=== PATIENT | female | born 1960 | race Caucasian/White ===

== ENCOUNTER 2020-10-22 12:56 | Inpatient (IN) | payer MEDICARE ==
[~2020-10-22] VITALS: Ht 157.5 cm; Wt 94.6 kg
[2020-10-22] MEDS ORDERED: GABA100 PO (14:41)
[2020-10-22] MEDS ORDERED: PAXIL PO (14:41)
[2020-10-22] MEDS ORDERED: ELIQUIS5 M3 PO (14:41)
[2020-10-22 14:43] LABS: BASOPHILS ABSOLUTE AUTO 0.04 K/mm3 (0.00-0.23); BASOPHILS PERCENT AUTO 0 % (0-2); EOSINOPHILS ABSOLUTE AUTO 0.19 K/mm3 (0.00-0.68); EOSINOPHILS PERCENT AUTO 2 % (0-6); Hematocrit 24.9 % (33.0-51.0); Hemoglobin 7.8 g/dL (11.5-16.0); IMMATURE GRAN ABSOLUTE AUTO 0.08 K/mm3 (0.00-0.10); IMMATURE GRAN PERCENT AUTO 1 % (0-1); LYMPHOCYTES ABSOLUTE AUTO 1.87 K/mm3 (0.84-5.20); LYMPHOCYTES PERCENT AUTO 18 % (21-46); MONOCYTES ABSOLUTE AUTO 0.65 K/mm3 (0.16-1.47); MONOCYTES PERCENT AUTO 6 % (4-13); Mean Corpuscular HGB 32.1 pg (26.0-34.0); Mean Corpuscular HGB Conc 31.3 g/dL (31.5-36.5); Mean Corpuscular Volume 103 fL (80-100); Mean Platelet Volume 10.2 fL (9.1-12.4); NEUTROPHILS ABSOLUTE AUTO 7.54 K/mm3 (1.96-9.15); NEUTROPHILS PERCENT AUTO 73 % (41-73); Platelet Count 288 K/mm3 (150-400); RDW Coefficient Variation 12.4 % (11.7-14.2); RDW Standard Deviation 47.1 fL (35.1-46.3); Red Blood Cell Count 2.43 M/mm3 (3.80-5.20); White Blood Cell Count 10.37 K/mm3 (4.00-11.30)
[2020-10-22] MEDS ORDERED: [UNRECOGNIZED DRUG - OTHER] PO (14:43)
[2020-10-22] MEDS ORDERED: DOXY100 PO (14:43)
[2020-10-22 15:03] LABS: Albumin, Blood 2.2 g/dL (3.4-5.0); Albumin/Globulin Ratio 0.5 (0.8-1.8); Bilirubin, Total 0.5 mg/dL (0.1-1.0); Bun/Creatinine Ratio 11.1 (12.0-20.0); Calcium, Blood 8.7 mg/dL (8.5-10.1); Creatinine, Blood 6.11 mg/dL (0.40-1.00); Globulin, Blood 4.5 g/dL (2.2-4.0); Potassium, Blood 4.7 mmol/L (3.5-5.5); Total Protein, Blood 6.7 g/dL (6.4-8.2)
[2020-10-22 16:25] LABS: International Normalized Ratio 1.1; Prothrombin Time Results 11.8 Sec (9.7-11.5)
--- NOTE | 2020-10-22 18:37 | NUR ---
PT ARRIVED TO UNIT FROM ED @ 1740 VIA GURNEY. PT TRANSFERRED BY SLIDING, WAS ABLE TO REPOSITION HERSELF IN BED AND PULL HERSELF UP. PT STATES SHE IS CURRENTLY IN NO PAIN, DENIES ANY SOB OR DISTRESS. DRESSING ON R BKA IS INTACT AND WAS CHANGED BEFORE COMING UP TO UNIT FROM ED. ARRIVES TO UNIT c HEPARIN RUNNING WELL ZYVOX. ADMISSION PROCESS STARTED BUT NOT YET COMPLETED, HISTORY AND ADMISSION ASSESSMENT NEEDS TO BE DONE. WILL REPORT THIS TO UNCOMING RN. [facility] WAS CALLED REGARDING CONSULT. 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 PT ORIENTED TO CALL SYSTEM. CURRENTLY RESTING IN BED EATING DINNER WITH CALL LIGHT WITHIN REACH.
--- NOTE | 2020-10-23 05:32 | NUR ---
SHIFT SUMMARY AOX4. VSS. REPORTS 12/13 THROBBING PAIN @R BKA STUMP WOUND, MEDICATED 1X c TYLENOL & PT ABLE TO REST COMFORTABLY T/O NIGHT. STATES UNSURE HOW WOUND OCCURRED & NOTICED IT LAST Thursday10/18/20. R BKA STUMP IS RED, SWOLLEN, WARM, PAINFUL TO TOUCH, MACERATED & HAS MODERATE AMOUNT SANGUINOUS DRAINAGE. CLEANSED, TOOK PICS, & APPLIED NEW DRESSING. DR ROSA CONSULTED PER HOSPITALIST YESTERDAY. HS CBG @194, INSULIN COVERAGE PROVIDED PER ORDERS. HEP DRIP RUNNING 17U/KG/HR. PT REPORTS NO DIALYSIS SINCE THURSDAY LAST WK & NORMALLY HAS IT , , THU-DR BUI WAS CONSULTED YESTERDAY. CONTINENT OF URINE, 1 ASSIST TO BSC. CALL LIGHT IN REACH & PT ABLE TO MAKE NEEDS KNOWN.
[2020-10-23 08:58] LABS: BASOPHILS ABSOLUTE AUTO 0.04 K/mm3 (0.00-0.23); BASOPHILS PERCENT AUTO 1 % (0-2); EOSINOPHILS ABSOLUTE AUTO 0.22 K/mm3 (0.00-0.68); EOSINOPHILS PERCENT AUTO 3 % (0-6); Hematocrit 24.2 % (33.0-51.0); Hemoglobin 7.6 g/dL (11.5-16.0); IMMATURE GRAN ABSOLUTE AUTO 0.04 K/mm3 (0.00-0.10); IMMATURE GRAN PERCENT AUTO 1 % (0-1); LYMPHOCYTES ABSOLUTE AUTO 2.59 K/mm3 (0.84-5.20); LYMPHOCYTES PERCENT AUTO 30 % (21-46); MONOCYTES ABSOLUTE AUTO 0.46 K/mm3 (0.16-1.47); MONOCYTES PERCENT AUTO 5 % (4-13); Mean Corpuscular HGB 32.1 pg (26.0-34.0); Mean Corpuscular HGB Conc 31.4 g/dL (31.5-36.5); Mean Corpuscular Volume 102 fL (80-100); Mean Platelet Volume 10.3 fL (9.1-12.4); NEUTROPHILS PERCENT AUTO 61 % (41-73); Platelet Count 302 K/mm3 (150-400); RDW Coefficient Variation 12.2 % (11.7-14.2); RDW Standard Deviation 46.2 fL (35.1-46.3); Red Blood Cell Count 2.37 M/mm3 (3.80-5.20); White Blood Cell Count 8.65 K/mm3 (4.00-11.30)
--- NOTE | 2020-10-23 09:17 | NUR ---
PT DOWN TO DIALYSIS
[2020-10-23 09:52] LABS: Albumin, Blood 2.1 g/dL (3.4-5.0); Albumin/Globulin Ratio 0.4 (0.8-1.8); Bilirubin, Total 0.3 mg/dL (0.1-1.0); Bun/Creatinine Ratio 11.6 (12.0-20.0); Calcium, Blood 8.6 mg/dL (8.5-10.1); Creatinine, Blood 6.57 mg/dL (0.40-1.00); Globulin, Blood 4.8 g/dL (2.2-4.0); Potassium, Blood 4.8 mmol/L (3.5-5.5); Total Protein, Blood 6.9 g/dL (6.4-8.2)
[2020-10-23 13:58] LABS: Influenza A, PCR NEGATIVE (NEGATIVE); Influenza B, PCR NEGATIVE (NEGATIVE); Resp Syncytial Virus, PCR NEGATIVE (NEGATIVE); SARS-Cov-2 (COVID-19) PCR, MMC NEGATIVE (NEGATIVE)
--- NOTE | 2020-10-23 15:01 | NUR ---
PT BACK FROM DIALYSIS AROUND 1230, PT MADE NPO BY DR ROSA, PT TO GO TO SURGERY AROUND 1600, DR ROSA CAME TO SPEAK WITH THE PT ABOUT SURGERY
--- NOTE | 2020-10-23 15:04 | NUR ---
HEPARIN DRIP STOPPED NOW PER DR DOMINIQUE FOR SURGERY
--- NOTE | 2020-10-23 16:44 | NUR ---
PT LEFT FOR SURGERY
--- NOTE | 2020-10-23 17:07 | NUR ---
SUMMARY PT IN SURGERY, PT HAS BEEN PLEASANT AND COOPERATIVE WITH CARE T/O THE DAY, UP TO THE COMMODE WITH 1P ASSIST, ABLE TO FEED HERSELF AND TAKE PILLS WHOLE, DRESSING TO THE R STUMP CHANGED FIRST THING THIS MORNING, PT ELENA WELL, VSS, WILL CONT TO MONITOR
[2020-10-23 17:10] LABS: International Normalized Ratio 1.06; Prothrombin Time Results 11.4 Sec (9.7-11.5)
--- NOTE | 2020-10-23 17:39 | NUR ---
10/23/20 1739 Bailee Salcedo PT ON SCHEDULED ANTIBIOTIC
--- NOTE | 2020-10-23 19:36 | NUR ---
ARRIVED TO FLOOR PT BACK FROM PACU @192. PT SLID TRANSFERRED SELF TO BED. HAS WOUND VAC IN PLACE. INCONT OF STOOL, CLEANSED & NEW BRIEF PLACED. POST OP VITALS PERFORMED. REPORTS 6.5/10 PAIN ON BOTTOM ON R STUMP, WILL MEDICATE PER ORDERS & MONITOR PT.
--- NOTE | 2020-10-24 04:33 | NUR ---
SHIFT SUMMARY AOX4. I&D & WOUND VAC PLACED ON R BKA. POD 1. SPO2 @88% ON RA WHEN PT RETURNED FROM SURGERY. PLACED 1L O2 & SPO2 90-91%, DOES DESAT c PAIN MEDICATION. REST OF VITALS STABLE. REPORTED 6.5/10 THROBBING PAIN ON BOTTOM R STUMP, MEDICATED 1X c 1MG MORPHINE, STATED RELIEF. REPORTS [place], GAVE TYLENOL & STATED RELIEF. ELEVATED R STUMP ON PILLOW. WOUND VAC PATENT, NO DRAINAGE NOTICED IN CANISTER @THIS TIME. HELD HS INSULIN COVERAGE SINCE PT HAD BEEN NPO FOR SURGERY & CBG @97. 1 ASSIST PIVOT TRANSFER TO BSC. CALL LIGHT IN REACH & PT ABLE TO MAKE NEEDS KNOWN.
[2020-10-24 05:00] LABS: Hematocrit 21.9 % (33.0-51.0); Hemoglobin 6.9 g/dL (11.5-16.0); Mean Corpuscular HGB 31.9 pg (26.0-34.0); Mean Corpuscular HGB Conc 31.5 g/dL (31.5-36.5); Mean Corpuscular Volume 101 fL (80-100); Mean Platelet Volume 10.4 fL (9.1-12.4); Platelet Count 294 K/mm3 (150-400); RDW Coefficient Variation 12.2 % (11.7-14.2); RDW Standard Deviation 45.1 fL (35.1-46.3); Red Blood Cell Count 2.16 M/mm3 (3.80-5.20)
[2020-10-24 05:19] LABS: Albumin, Blood 2.2 g/dL (3.4-5.0); Anion Gap 8 mmol/L (6-16); Blood Urea Nitrogen 41 mg/dL (8-24); Bun/Creatinine Ratio 9.8 (12.0-20.0); CO2, Blood 24 mmol/L (21-32); Calcium, Blood 8.5 mg/dL (8.5-10.1); Chloride, Blood 102 mmol/L (98-108); Glomerular Filtration Rate 12 (60-); Glucose, Blood 289 mg/dL (70-99); Magnesium, Blood 2.1 mg/dL (1.6-2.4); Potassium, Blood 5.1 mmol/L (3.5-5.5); Sodium, Blood 134 mmol/L (136-145)
[2020-10-24 06:09] LABS: BASOPHILS PERCENT MAN 0 % (0-2); EOSINOPHILS PERCENT MAN 0 % (0-6); LYMPHOCYTES ABSOLUTE MAN 0.21 K/mm3 (0.84-5.20); LYMPHOCYTES PERCENT MAN 3 % (21-46); MONOCYTES PERCENT MAN 0 % (4-13); MYELOCYTE ABSOLUTE MAN 0.14 K/mm3 (0.00-0.00); MYELOCYTE PERCENT MAN 2 % (0-0); NEUTROPHILS ABSOLUTE MAN 6.74 K/mm3 (1.96-9.15); SEG NEUTROPHILS PERCENT MAN 95 % (41-73); TOTAL CELLS COUNTED 100
--- NOTE | 2020-10-24 13:23 | NUR ---
MORNING MEDS ADMINISTERED WHEN PT RETURNED FROM DIALYSIS. CALL TO PHARMACY TO RETIME ANTIBIOTICS, THEY REPORT THEY WILL NOT RETIME, BUT INSTRUCTED TO ADMINISTER
--- NOTE | 2020-10-24 18:27 | NUR ---
PT AA&OX4. TWO PATENT IV BL ANTICUBICALS SALINE LOCKED. MEDICATED FOR PAIN X2 WITH GOOD RESULTS. PT STATES PAIN TOLERABLE. APPETITE GOOD NO BM TODAY. 1 ASSIST TO BSC. WOUND VAC TO R BKA. MINIMAL SEROSANG DRAINAGE. SURGEON REPORTS NO BONE REMOVED, NO OSTEOMYELITIS. PLAN TO WAIT FOR WOUND CULTURE RESULTS THEN POSSIBLE DISCHARGE HOME TOMORROW. PT HAS NO QUESTIONS OR CONCERNS AT THIS TIME.
--- NOTE | 2020-10-24 18:38 | NUR ---
PT OFF FLOOR 0900 FOR DYALYSIS, UNABLE TO PASS AM MEDS UNTIL RETURN. PT H&H LOW. 2 UNITS PRBC ADMINISTERED DURING DYALYSIS. CINDY DORSEY TO BE RESTARTED THIS EVENING
--- NOTE | 2020-10-25 04:19 | NUR ---
BRAZING MACHINE TENDER SUMMARY PT A/O X4. DENIES PAIN, NAUSEA, DIZZINESS. PT HAS RIGHT BKA WHICH HAS BEEN ABOUT 2 YEARS STATED BY PT. WOUND VAC IN PLACE ON RIGHT LEG. ROOM AIR MAINTAINING O2 SATS AT 92% AND ABOVE. CALLS APPROPIRATELY. NO ACUTE CHANGES. VSS. CALL LIGHT WITHIN REACH.
[2020-10-25 05:51] LABS: Hematocrit 27.3 % (33.0-51.0)
[2020-10-25 06:16] LABS: Albumin, Blood 2.3 g/dL (3.4-5.0); Anion Gap 8 mmol/L (6-16); Blood Urea Nitrogen 36 mg/dL (8-24); Bun/Creatinine Ratio 9.7 (12.0-20.0); CO2, Blood 30 mmol/L (21-32); Chloride, Blood 96 mmol/L (98-108); Creatinine, Blood 3.73 mg/dL (0.40-1.00); Glomerular Filtration Rate 13 (60-); Glucose, Blood 192 mg/dL (70-99); Phosphorus, Blood 5.7 mg/dL (2.5-4.9); Potassium, Blood 3.4 mmol/L (3.5-5.5); Sodium, Blood 134 mmol/L (136-145)
--- NOTE | 2020-10-25 18:32 | NUR ---
SHIFT SUMMARY PT IS A&O AND ABLE TO MAKE NEEDS KNOWN. PT HAD DIALYSIS THIS MORNING. DR LAMAS VISITED PT THIS AFTERNOON PER CONSULATION REQUEST. WOUND VAC DRESSING CHANGED, WOUND MEASURMENTS ARE 4CM WIDE, 8 CM LENGTH, 1.75CM DEPTH. PT DID EXPERIENCE PAIN WHEN REMOVING DRESSING AND OLD FOAM. DRESSING CHANGES ARE TO BE DONE ON MON, WED, FRI. NO ACUTE CHANGES TO REPORT. PT RESTING IN ROOM, CALL LIGHT W/IN REACH. WILL CONTINUE TO MONITOR UNTILL SHIFT CHANGE.
--- NOTE | 2020-10-26 03:21 | NUR ---
SHIFT SUMMARY PATIENT HAD NO ACUTE CHANGES OBSERVED. AXOX 4 AND STAND/PIVOT TO BSC. RIGHT BKA AND WOUND VAC IN PLACE. PERMA CATH RIGHT CHEST WALL. CBG 220. PIVS REMAIN INTACT. IV ABX INFUSED. ON ROOM AIR. DENIES PAIN, SOB, AND N/V. VSS/AFEBRILE. COOPERATIVE WITH CARE. CONTACT PRECAUTIONS. CALL LIGHT IN REACH. BED IN LOWEST POSITION. WILL CONTINUE TO MONITOR UNTIL DAY SHIFT NURSE ASSUMES CARE.
[2020-10-26 06:36] LABS: BASOPHILS ABSOLUTE AUTO 0.03 K/mm3 (0.00-0.23); BASOPHILS PERCENT AUTO 0 % (0-2); EOSINOPHILS ABSOLUTE AUTO 0.13 K/mm3 (0.00-0.68); EOSINOPHILS PERCENT AUTO 2 % (0-6); Hematocrit 29.7 % (33.0-51.0); Hemoglobin 9.5 g/dL (11.5-16.0); IMMATURE GRAN ABSOLUTE AUTO 0.05 K/mm3 (0.00-0.10); IMMATURE GRAN PERCENT AUTO 1 % (0-1); LYMPHOCYTES ABSOLUTE AUTO 2.52 K/mm3 (0.84-5.20); LYMPHOCYTES PERCENT AUTO 31 % (21-46); MONOCYTES ABSOLUTE AUTO 0.48 K/mm3 (0.16-1.47); MONOCYTES PERCENT AUTO 6 % (4-13); Mean Corpuscular HGB 31.7 pg (26.0-34.0); Mean Corpuscular Volume 99 fL (80-100); Mean Platelet Volume 10.2 fL (9.1-12.4); NEUTROPHILS PERCENT AUTO 60 % (41-73); Platelet Count 276 K/mm3 (150-400); RDW Coefficient Variation 13.7 % (11.7-14.2); RDW Standard Deviation 49.6 fL (35.1-46.3); White Blood Cell Count 8.11 K/mm3 (4.00-11.30)
[2020-10-26 06:53] LABS: Albumin, Blood 2.3 g/dL (3.4-5.0); Anion Gap 9 mmol/L (6-16); Blood Urea Nitrogen 36 mg/dL (8-24); Bun/Creatinine Ratio 9.4 (12.0-20.0); CO2, Blood 28 mmol/L (21-32); Calcium, Blood 8.3 mg/dL (8.5-10.1); Chloride, Blood 97 mmol/L (98-108); Creatinine, Blood 3.81 mg/dL (0.40-1.00); Glomerular Filtration Rate 13 (60-); Glucose, Blood 162 mg/dL (70-99); Magnesium, Blood 1.9 mg/dL (1.6-2.4); Potassium, Blood 3.7 mmol/L (3.5-5.5); Sodium, Blood 134 mmol/L (136-145)
--- NOTE | 2020-10-26 17:57 | NUR ---
SHIFT SUMMARY PT A&O AND ABLE TO MAKE NEEDS KNOWN. HAD DIALYSIS THIS MORNING. PTHYSICAL THERPAPY CONSULT WAS DONE IN AFTERNOON AND IT WAS RECOMENDED FOR PT TO DISCHARGE HOME WITH HOME HEALTH. [facility] [employer] IS WOKRING ON DC PLAN FOR PT, IT IS NOT EXPECTED THAT PT WILL DISHCHARGE THIS WEEKEND DUE TO MULTIPLE FACTORS SHE HAS TO SORT OUT. PT HAS EXPERIENCED SOME LOSE AND SOFT BM THIS SHIFT. SPOKE WITH DR DOMINIQUE AND PRN IMODIUM AND PROBIOTIC WAS ORDERED. PT HAS NOT NEEDED TO USE IMODIUM. PT DENIES P/N/V DURING SHIFT. PT CURENTLY IN ROOM FINISHING DINNER. CALL LIGHT W/IN REACH. WILL CONTINUE TO MONITOR UNTIL NIGHT NURSE ARRIVES.
--- NOTE | 2020-10-27 05:26 | NUR ---
SHIFT SUMMARY- PT. S/P I&D OF THE R BKA STUMP, WOUND VAC IN PLACE. PT. A&OX4, PLEASANT AND COOPERATIVE WITH CARE. ABLE TO TRANSFER ONTO BSC W/MINIMAL ASSISTANCE. C/O HEADACHE LAST NIGHT. MEDICATED PER EMAR WITH GOOD EFFECT. PT. REPORTS HAVING LOOSE STOOLS DURING THE DAY, HAD BM X1 LAST NIGHT. PER PT. REQUEST MEDICATED WITH PRN IMMODIUM. PT. SLEPT T/O THE NIGHT, NO APPARENT DISTRESS NOTED. DENIED ANY OTHER NEEDS DURING THE NIGHT. APPEARED COMFORTABLY T/O THE SHIFT, VSS. CALL LIGHT WITHIN REACH AND SIDE RAILS UPX2. WILL CONT TO MONITOR.
[2020-10-27 05:54] LABS: Hematocrit 30.4 % (33.0-51.0)
[2020-10-27 06:15] LABS: Albumin, Blood 2.4 g/dL (3.4-5.0); Anion Gap 6 mmol/L (6-16); Blood Urea Nitrogen 31 mg/dL (8-24); Bun/Creatinine Ratio 8.4 (12.0-20.0); CO2, Blood 30 mmol/L (21-32); Calcium, Blood 8.6 mg/dL (8.5-10.1); Chloride, Blood 94 mmol/L (98-108); Creatinine, Blood 3.69 mg/dL (0.40-1.00); Glomerular Filtration Rate 13 (60-); Glucose, Blood 120 mg/dL (70-99); Phosphorus, Blood 4.9 mg/dL (2.5-4.9); Potassium, Blood 3.7 mmol/L (3.5-5.5); Sodium, Blood 130 mmol/L (136-145)
--- NOTE | 2020-10-27 18:41 | NUR ---
SHIFT SUMMARY TAMMY GOT TYLENOL FOR HEADACHE. SBA PIVOT TRANSFER TO BSC, DID WELL, WE JUST MANAGED WOUND VAC HOSE, CALLS APPROPRIATELY. WOUND VAC SUCTIONING W/O ISSUES. NO HD THIS SHIFT. HAD ONE BM THIS SHIFT. CALL LIGHT IN REACH, WCTM
--- NOTE | 2020-10-28 04:26 | NUR ---
SHIFT SUMMARY- PT. HAD NO ACUTE EVENTS OVERNIGHT. DENIES C/O PAIN OR DISCOMFORT. CONTS TO REPORT LOOSE STOOLS, IMMODIUM GIVEN 1X. NOTED PT. HAD 1 MEDIUM SIZE SOFT STOOL LAST NIGHT. ABLE TO TRANSFER TO BSC WITH MINIMAL ASSIST. WOUND VAC IN PLACE WORKING WELL. PT. STATES PREFERS TO GO HOME UPON D/C VERSUS SNF, VSS. CALL LIGHT WITHIN REACH AND SIDE RAILS UPX2. WILL CONT TO MONITOR.
[2020-10-28 05:37] LABS: Hematocrit 31.3 % (33.0-51.0); Hemoglobin 10.2 g/dL (11.5-16.0)
[2020-10-28 06:06] LABS: Albumin, Blood 2.5 g/dL (3.4-5.0); Anion Gap 9 mmol/L (6-16); Blood Urea Nitrogen 43 mg/dL (8-24); Bun/Creatinine Ratio 8.8 (12.0-20.0); CO2, Blood 26 mmol/L (21-32); Calcium, Blood 8.7 mg/dL (8.5-10.1); Chloride, Blood 94 mmol/L (98-108); Creatinine, Blood 4.88 mg/dL (0.40-1.00); Glomerular Filtration Rate 10 (60-); Glucose, Blood 171 mg/dL (70-99); Magnesium, Blood 2.3 mg/dL (1.6-2.4); Phosphorus, Blood 5.2 mg/dL (2.5-4.9); Potassium, Blood 3.9 mmol/L (3.5-5.5); Sodium, Blood 129 mmol/L (136-145)
--- NOTE | 2020-10-28 18:51 | NUR ---
SHIFT SUMMARY TAMMY GOT TYLENOL FOR HEADACHE. UP TO BSC WITH SBA. WOUND VAC RUNNING, DRESSING C/D/I. HAD DIALYSIS THIS MORNING. GOT INSULIN FOR SLIGHTLY ELEVATED CBGS. CALL LIGHT IN REACH, WCTM
[2020-10-29 05:05] LABS: Hematocrit 32.5 % (33.0-51.0); Hemoglobin 10.4 g/dL (11.5-16.0)
--- NOTE | 2020-10-29 05:15 | NUR ---
SHIFT SUMMARY- NO ACUTE EVENTS OVERNIGHT. PT. APPEARED TO HAVE RESTED COMFORTABLY T/O THE NIGHT, NO APPARENT DISTRESS NOTED. NO COMPLAINTS OF PAIN OR DISCOMFORT, VSS. PT. ANTICIPATING D/C TODAY. CALL LIGHT WITHIN REACH AND SIDE RAILS UPX2. WILL CONT TO MONITOR.
[2020-10-29 05:43] LABS: Albumin, Blood 2.7 g/dL (3.4-5.0); Anion Gap 4 mmol/L (6-16); Blood Urea Nitrogen 26 mg/dL (8-24); Bun/Creatinine Ratio 6.8 (12.0-20.0); CO2, Blood 29 mmol/L (21-32); Calcium, Blood 8.8 mg/dL (8.5-10.1); Chloride, Blood 100 mmol/L (98-108); Creatinine, Blood 3.85 mg/dL (0.40-1.00); Glomerular Filtration Rate 13 (60-); Glucose, Blood 173 mg/dL (70-99); Magnesium, Blood 2.3 mg/dL (1.6-2.4); Phosphorus, Blood 3.8 mg/dL (2.5-4.9); Potassium, Blood 4.1 mmol/L (3.5-5.5); Sodium, Blood 133 mmol/L (136-145)
--- NOTE | 2020-10-29 16:34 | NUR ---
SHIFT SUMMARY PT A&Ox4. PLEASANT AND COOPERATIVE WITH CARE. WORKED WITH PHYSICAL THERAPY TODAY. PT TRANSFERRING WELL TO [facility] [place] WITH LITTLE ASSISTANCE NEEDED- SBA. PT RECEIVED IV ABX TODAY. NO DIALYSIS. WOUND VAC DRESSING CHANGED TODAY. CURRENT PLAN IS TO DC HOME TOMORROW WITH HOME HEALTH. PT CURRENTLY RESTING IN BED WITH CALL LIGHT IN REACH. DENIES ANY PAIN TODAY, EXCEPT DURING WOUND VAC DRESSING CHANGE. PT WAS MEDICATED PER EMAR. VITALS REVIEWED. DENIES ANY NEEDS AT THIS TIME.
--- NOTE | 2020-10-29 18:33 | NUR ---
Met with pt today, provided therapeutic listening for some time. Pt told me about the loss of her R leg, and tells me she always plans to eat better, but never gets around to it. She stated she has attempted many diets, but none have "stuck" for her. She states it bothers her greatly because she feels she would not be living on insulin if she could only change her diet. Her family history is full of diabetics, including including her brother, and they live together in [place]. Therapeutic listening seemed to be just right for tonight. Will resume our converstion tomorrow, discuss code status if appropriate.
--- NOTE | 2020-10-30 05:20 | NUR ---
SUMMARY: A/OX4, CALLS APPROPRIATELY AND PLEASANT/COOPERATIVE W/CARE. SHE STAND PIVOTS INDEPENDENTLY TO BSC AND REPOSITIONS SELF IN BED. WOUND VAC TO R.BKA INFECTION REMAINS C/D/I W/SUCTION INTACT, NO DRAINAGE NOTED THIS SHIFT. IV ABX RECIEVED THEN SL. PT REFUSED BOWEL MEDS D/T HAVING BM ON DAY SHIFT. PERM CATH PRESENT TO R.CW, POSSIBLE DIALYSIS TODAY. SHE DENIED PAIN AND ALL OTHER COMPLAINTS. NO ACUTE CHANGES, VSS/AFEBRILE. PLAN FOR D/C TODAY W/HOME HEALTH. WCYULY AND REPORT TO DAY RN.
--- NOTE | 2020-10-30 17:21 | NUR ---
SHIFT SUMMARY PT AxOx4. PLEASANT AND COOPERATIVE WITH CARE. PT WENT FOR DIALYSIS TODAY. PT HAD PHYSICAL THERAPY TODAY. REPORTS "FEELING TIRED, BUT GOOD" AFTER DIALYSIS TODAY. PT HAD LEAK IN WOUND VAC THIS AM, AND DRESSING WAS REPLACED. DC OVEN EQUIPMENT REPAIRER INVOLVED WITH PATIENT. CURRENTLY WORKING ON ARRANGING HOME HEALTH AND WOUND VAC CARE. PT DENIES ANY PAIN TODAY, EXCEPT DURING WOUND DRESSING CHANGE. VITALS REVIEWED. DR ROSA ORDERED STAT U/S THIS EVENING TO R/U DVT FOR PT'S REPORTED SWELLING IN LLE. PT CURRENTLY RESTING IN BED WITH CALL LIGHT IN REACH. DENIES ANY NEEDS AT THIS TIME.
--- NOTE | 2020-10-30 19:34 | NUR ---
CALL TO DR ROSA TO NOTIFY HIM OF PATIENT'S NEG VENOUS DUPLEX US AT 1900.
[2020-10-31 05:06] LABS: Hematocrit 31.3 % (33.0-51.0); Hemoglobin 10.2 g/dL (11.5-16.0)
[2020-10-31 05:29] LABS: Albumin, Blood 2.6 g/dL (3.4-5.0); Anion Gap 5 mmol/L (6-16); Blood Urea Nitrogen 28 mg/dL (8-24); Bun/Creatinine Ratio 6.9 (12.0-20.0); CO2, Blood 28 mmol/L (21-32); Calcium, Blood 8.6 mg/dL (8.5-10.1); Chloride, Blood 99 mmol/L (98-108); Creatinine, Blood 4.06 mg/dL (0.40-1.00); Glomerular Filtration Rate 12 (60-); Glucose, Blood 107 mg/dL (70-99); Magnesium, Blood 2.1 mg/dL (1.6-2.4); Phosphorus, Blood 3.6 mg/dL (2.5-4.9); Potassium, Blood 4.1 mmol/L (3.5-5.5); Sodium, Blood 132 mmol/L (136-145)
--- NOTE | 2020-10-31 05:58 | NUR ---
SUMMARY PT HAS A COMPLAINT OF SMALL BUMP ON BACK OF HEAD. IT APPEARS RED WITH WHITE CENTER. PT DENIES AND DISCOMFORT BUT WANTS PROVIDER TO ASSESS BUMP. PT HAD NO OTHER NOTED ISSUES. PT HAS SLEPT WELL T/O SHIFT. PT CURRENTLY SLEEPING IN NO DISTRESS. CALL LIGHT IN REACH.
[2020-10-31] MEDS ORDERED: Acetaminophen325 M1 PO (13:18)
[2020-10-31] MEDS ORDERED: Vitamin B-Comp1 EACH PO (13:19)
[2020-10-31] MEDS ORDERED: CALCIUM ACETAT667 MG PO (13:20)
[2020-10-31] MEDS ORDERED: Calcium Acetat667 MG PO (13:20)
[2020-10-31] MEDS ORDERED: BASAGLAR K100 UNIT/6 SC (13:21)
[2020-10-31] MEDS ORDERED: VISBIOME 112.51 EACH PO (13:21)
[2020-10-31] MEDS ORDERED: LINE600 PO (13:22)
--- NOTE | 2020-10-31 17:31 | NUR ---
pt discharge THE PT VERBALIZED UNDERSTANDING OF THE DC INSTRUCTIONS, THE PTS PRESCRIPTIONS WERE FAXED TO [facility] IN [facility], THE PT WAS TRANSFERED VIA WHEELCHAIR, ACCOMPANIED BY [employer], BELONGINGS RELEASED TO THE PT, THE PT APPEARED TO BE BREATHING EASILY ON RA AT THE TIME OF DC, THE PTS WOUND VAC WAS INPLACE AND WORKING AT THE TIME OF DC
== END 2020-10-31 17:17 | disposition home health service (06) | DRG 570 ==
LOC: ER 12:56 → MEDS 15:57
PROVIDERS: Emergency Medicine; Internal Medicine Nephrology; Orthopaedic Surgery; ADMIT Internal Medicine
PROC: 0JBN0ZZ Excision of Right Lower Leg Subcutaneous Tissue and Fascia, Open Approach (ICD-10-PCS; principal; 2020-10-23 16:30)
DX: L03.115 Cellulitis of right lower limb (principal); N18.6 End stage renal disease; E87.1 Hypo-osmolality and hyponatremia; I12.0 Hypertensive chronic kidney disease with stage 5 chronic kidney disease or end stage renal disease; M86.8X6 Other osteomyelitis, lower leg; L02.415 Cutaneous abscess of right lower limb; E87.5 Hyperkalemia; Z20.822 Contact with and (suspected) exposure to COVID-19; B95.62 Methicillin resistant Staphylococcus aureus infection as the cause of diseases classified elsewhere; E87.6 Hypokalemia; E11.42 Type 2 diabetes mellitus with diabetic polyneuropathy; E11.69 Type 2 diabetes mellitus with other specified complication; E88.09 Other disorders of plasma-protein metabolism, not elsewhere classified; F32.9 Major depressive disorder, single episode, unspecified; D63.1 Anemia in chronic kidney disease; E11.22 Type 2 diabetes mellitus with diabetic chronic kidney disease; Z99.2 Dependence on renal dialysis; Z88.1 Allergy status to other antibiotic agents; Z88.2 Allergy status to sulfonamides; Z88.8 Allergy status to other drugs, medicaments and biological substances; Z89.511 Acquired absence of right leg below knee; Z89.412 Acquired absence of left great toe; Z86.718 Personal history of other venous thrombosis and embolism; Z79.01 Long term (current) use of anticoagulants; Z79.899 Other long term (current) drug therapy; Z79.4 Long term (current) use of insulin
CPT/HCPCS: 0241U; 36415; 36430; 73700; 80053; 80069; 82947; 83605; 83735; 84134; 84466; 85014; 85018; 85025; 85610; 85651; 85730; 86140; 86850; 86900; 86901; 86923; 87040; 87071; 87075; 87077; 87147; 87186; 93926; 93971; 94762; 96365; 96366; 96375; 97110; 97162; 97530; 99285-25; A9270; J0696; J0881; J1100; J1200; J1644; J2020; J2270; J2405; J2704; J3010; J3480; J7050; P9016